=== PATIENT | female | born 1930 | race Caucasian/White ===

== ENCOUNTER → 2016-12-25 | Outpatient (CLI) | payer MEDICARE, OTHER | END | disposition home or self-care (01) | LOC: GMAB 16:40 | PROVIDERS: ATTEND Family Medicine | DX: E03.9 Hypothyroidism, unspecified (principal) ==

== ENCOUNTER → 2018-01-23 | Outpatient (CLI) | payer MEDICARE, OTHER ==
--- NOTE | 2018-01-23 20:51 | MRI ---
EXAM DESCRIPTION: Lumbar Spine w/o Contrast : Magnetic Resonance Imaging. CLINICAL HISTORY: LOW BACK PAIN COMPARISON: LUMBAR TECHNIQUE: Multiplanar, multiple standard sequences, non contrast MRI, lumbar spine. FINDINGS: L5-S1: Disc desiccation and minimal disc space loss. Bilateral Modic type II endplate reactive changes more to the left and right. Left side disc osteophyte complex encroaching on the foramen with marked stenosis and impingement of the exiting left L5 nerve minimal posterior disc bulge and mild canal narrowing. Moderate right foraminal narrowing. Posterior flavum ligament hypertrophy and facet arthrosis more left than right. L4-5: Disc desiccation and disc space preserved. Minimal anterior bulging. Tiny posterior broad-based bulge and trace anterolisthesis. Marked flavum ligament hypertrophy with facet arthrosis and AP canal diameter is 6 mm. Narrowing of the bilateral subarticular recesses. Between the right medial facet in the right posterior disc space is a 6 mm cystic mass. Minimal encroachment on the lateral thecal sac and the descending right L5 nerve. Bulging disc and facet spur on the right causing mild foraminal stenosis. Similar stenosis with disc facet mass effect on the left. L3-4: Disc desiccation and anterior bulging. Trace retrolisthesis. Posterior broad-based tiny bulge. Marked hypertrophy of the flavum ligaments and facet arthrosis encroaching on the thecal sac AP canal diameter 8 mm. Minimal narrowing of the superior subarticular recesses. Mild to moderate narrowing of the right foramen and moderate narrowing of the left foramen caused by bulging of the facets and discs bilaterally. L2-3: Disc desiccation minimal anterior posterior bulge with disc space preserved more on the left. Mild flavum ligament hypertrophy and facet arthrosis bilaterally with mild canal narrowing. Facet and bone causing left foraminal stenosis. Mild to moderate narrowing of the right foramen. L1-2: Disc desiccation minimal anterior bulging and narrowing. Minimal ligament and facet abnormality. Canal patent. Minimal right side Modic type II endplate reactive changes. Bilateral foramina are patent. Conus terminates at this level. T12-L1: Anterior disc space loss disc bulging and endplate ridging and Modic type II endplate reactive changes. Tiny posterior bulge posteriorly with facet arthrosis and minimal ligament hypertrophy. Canal and foramina are patent. L2-L4 levoscoliosis. Paravertebral soft tissues paraspinal muscle atrophy.. Normal marrow signal in the remaining vertebral bodies and the posterior elements. Vertebral bodies are not compressed at any level. IMPRESSION: 1. Bilateral moderate spondylosis. Left disc osteophyte complex encroaching on the foramen with moderate stenosis. Correlate for left L5 radiculopathy. 2. Multifactorial severe canal stenosis at L4-5 with narrowing of the bilateral subarticular recesses. 6 mm right facet synovial cyst may be impinging the descending right L5 nerve. Mild foraminal stenosis bilaterally, correlate for bilateral L4 radiculopathy. 3. Multifactorial mild to moderate canal stenosis at L3-4. Mild to moderate narrowing of the right foramen. Correlate for bilateral L4 nerve impingement in the canal. 4. Facet bone complex with left foraminal stenosis at L2-3. Correlate for left L2 radiculopathy. Electronically signed by: Nikhil Augustin MD 01/23/2018 8:50 PM CDT
== END ==
LOC: MRI 14:58
PROVIDERS: ATTEND Family Medicine
DX: M54.5 Low back pain (principal); M47.896 Other spondylosis, lumbar region; M48.061 Spinal stenosis, lumbar region without neurogenic claudication

== ENCOUNTER → 2018-02-24 | Outpatient (CLI) | payer MEDICARE, OTHER | LOC: GMAE 15:25 | PROVIDERS: ATTEND Family Medicine | DX: E03.9 Hypothyroidism, unspecified (principal) ==

== ENCOUNTER → 2018-03-24 | Outpatient (CLI) | payer MEDICARE, OTHER | LOC: GMAE 14:50 | PROVIDERS: ATTEND Family Medicine | DX: D64.9 Anemia, unspecified (principal) ==

== ENCOUNTER → 2018-05-28 | Outpatient (CLI) | payer MEDICARE, OTHER | LOC: GMAE 17:19 | PROVIDERS: ATTEND Family Medicine | DX: R06.02 Shortness of breath (principal); R07.2 Precordial pain ==

== ENCOUNTER 2018-07-09 21:44 | Emergency (ER) | payer MEDICARE, OTHER ==
--- NOTE | 2018-07-09 15:23 | MRI ---
EXAM DESCRIPTION: Brain w/wo Contrast: Magnetic Resonance Imaging. CLINICAL HISTORY: 87 years Female I66.01 COMPARISON: MRI scan of the brain without and with gadolinium IV contrast on 2015 and 08/22/2015. TECHNIQUE: Multiplanar, high-field MRI, multiple conventional sequences, without and with gadolinium IV contrast. No adverse reactions. Multiple axial diffusion sequences. FINDINGS: Bilateral confluent hyperintense signal in the periventricular white matter superior to the ventricles bilaterally with small foci of hyperintense FLAIR and T2 signal slightly more superior in the right frontal lobe. Also minimal confluence of hyperintense periventricular FLAIR signal abutting the occipital segments of the lateral ventricles. Another focal hyperintense FLAIR lesion is in the ascending white matter tracts anterior right frontal tanner radiata above the basal ganglia. These lesions are not associated with hemorrhage, abnormal contrast enhancement, or diffusion restriction.. Small focal hyperintense FLAIR signal in the anterior right basal ganglia. No hemorrhage, no cerebral edema, no mass-effect. No diffusion restriction. Normal contrast enhancement. Normal signal in the brainstem and cerebellar hemispheres. No hemorrhage, no cerebral edema, no mass-effect. Normal contrast enhancement. Concordance of the diffusion and non-diffusion sequences with no evidence of acute or subacute infarction. Cortical sulci, ventricles, and other CSF spaces, and the subdural spaces are normally configured for the patient's age. No effacement or displacement. No midline shift. No extra-axial hemorrhage. Normal contrast enhancement. Normal flow signal void in the major vessels of the [place], and the venous sinuses. IACs are symmetric bilaterally. Normal signal in the bilateral mastoid air cells. No mass effect in the bilateral Cerebellopontine angles. Normal contrast enhancement. Pituitary gland occupies most of the sella. Normal contrast enhancement. Base of the cerebellar tonsils is just above the foramen magnum. Minimal hyperintense T2 signal in the anterior paranasal sinuses. The bony calvarium is intact. IMPRESSION: 1. White matter signal changes in the periventricular regions as described without contrast enhancement hemorrhage, mass effect, or diffusion restriction. Relatively stable since the prior study in 2015. 2. No diffusion restriction elsewhere in the brain with no evidence of acute or subacute cerebral infarction. No intra-axial extra-axial hemorrhage or abnormal contrast enhancement. Electronically signed by: Nikhil Augustin MD 07/09/2018 3:22 PM [facility]
[2018-07-09] MEDS ORDERED: NITROGLYCERIN 0.4 MG 25 EA TAB SL ONE ×2 (21:52→21:56)
[2018-07-09] MEDS ORDERED: ASPIRIN TABLET 325 MG TAB ONE (21:53)
[2018-07-09] MEDS ORDERED: ASPIRIN TABLET 325 MG TAB PO ONE (21:56)
[2018-07-09] MEDS ORDERED: ONDANSETRON INJ 4 MG/2 ML VIAL ONE (22:10)
[2018-07-09] MEDS ORDERED: ONDANSETRON INJ 4 MG/2 ML VIAL IV ONE (22:10)
[2018-07-09] MEDS ORDERED: MORPHINE SULFATE INJ 10 MG/ML VIAL IV ONE (22:10)
[2018-07-09] MEDS ORDERED: ADENOSINE INJ 6 MG/2 ML SYG IV ONE (22:12)
--- NOTE | 2018-07-09 22:20 | RAD ---
EXAM DESCRIPTION: Chest,1 View CLINICAL HISTORY: chest pain COMPARISON: None. FINDINGS: Cardiac silhouette is within normal limits. There is consolidation at the right lung base and mild bilateral pulmonary edema. No consolidation in the left lung. IMPRESSION: Right lung base consolidation. Electronically signed by: Nikhil Rivers 07/09/2018 10:19 PM [facility]
--- NOTE | 2018-07-09 22:25 | ED.PDOC ---
History of Present Illness - General Chief Complaint: Chest Pain/[place] Stated Complaint: chest pain Time Seen by Provider: 07/09/18 22:05 Exam Limitations: no limitations - History of Present Illness Initial Comments: CHEST PAIN ONSET AT 1830 HRS. SHE VOICES THAT SHE HAS TWO STENTS FIVE YEARS AGO BY DR. ARIAS. SHE ALSO HAS A HX OF AF. FEELS PALPITATIONS/ PAIN IS PRESSURE ON THE SUBSTERNAL AREA ASSOCIATED WITH MILD SOB. Timing/Duration: 4-6 hours Location: substernal Activities at Onset: none Prior Chest Pain/Cardiac Workup: cardiac cath, other - HAS KNOWN CAD Improving Factors: nothing Worsening Factors: nothing Nitro Today/Relief: no nitro taken today Aspirin Treatment Today: no aspirin today Associated Symptoms: chest pain Allergies/Adverse Reactions: Allergies NO KNOWN ALLERGY Allergy (Verified 04/26/16 10:29) Home Medications: Ambulatory Orders Aspirin [Aspirin Adult Low Dose] 81 mg PO DAILY 04/26/16 Insulin Lispro [HumaLOG] 300 unit SUBCU PRN 04/26/16 Levothyroxine Sodium [Levo-T] 100 mcg PO AC 04/26/16 Acetaminophen [Tylenol 8 Hour] 650 mg PO PRN 07/09/18 Clopidogrel Bisulfate [Plavix] 75 mg PO QD 07/09/18 Docusate Sodium [Stool Softener] 100 mg PO AC 07/09/18 Homeopathic Products [Leg Cramp Relief] 1 tab PO PRN 07/09/18 Insulin Glargine [Toujeo Max Solostar] 42 unit SC AC 07/09/18 Metoprolol Succinate [Metoprolol Succinate ER] 25 mg PO BID 07/09/18 Multiple Vitamins W/ Minerals [Centrum Silver] 1 tab PO DAILY 07/09/18 Red Yeast Rice Extract [Red Yeast Rice] 600 mg PO BID 07/09/18 Review of Systems - Review of Systems Constitutional: States: malaise EENTM: States: no symptoms reported Respiratory: States: short of breath Cardiology: States: chest pain, palpitations Gastrointestinal/Abdominal: States: nausea Genitourinary: States: no symptoms reported Musculoskeletal: States: no symptoms reported Skin: States: no symptoms reported Neurological: States: no symptoms reported Endocrine: States: no symptoms reported Hematologic/Lymphatic: States: no symptoms reported Past Medical History (General) - Patient Medical History Hx Seizures: No Hx Stroke: No Hx Dementia: No Hx Asthma: No Hx of COPD: No Hx Cardiac Disorders: Yes Hx Congestive Heart Failure: No Hx Pacemaker: No Hx Hypertension: Yes Hx Thyroid Disease: Yes Hx Diabetes: Yes Hx Gastroesophageal Reflux: No Hx Renal Disease: No Hx Cancer: No Hx of HIV: No Hx Hepatitis C: No Hx MRSA: No Surgical History: cholecystectomy Family Medical History - Family History Mother Family History: Unknown Physical Exam - Physical Exam General Appearance: Obvious distress Eyes, Ears, Nose, Throat Exam: PERRL/EOMI Neck: non-tender Respiratory: chest non-tender Cardiovascular/Chest: normal peripheral pulses, no edema, no gallop, tachycardia Peripheral Pulses: radial,right: 2+, radial,left: 2+ Gastrointestinal/Abdominal: normal bowel sounds, non tender, soft, no organomegaly, no pulsatile mass Rectal Exam: deferred Extremity: normal range of motion Neurologic: no motor/sensory deficits, normal mood/affect, oriented x 3 Skin Exam: normal color Lymphatic: no adenopathy Progress - Progress Progress: 07/09/18 22:28 HR AT 74 AFTER 20 MG OF CARDIZEM. PAIN IS BETTER. 07/09/18 22:53 Vital Signs (72 hours) 07/09/18 21:45 Temperature 96.7 F L Pulse Rate [ 130 H monitor] Respiratory 16 Rate Blood Pressure 176/112 [Left Arm] O2 Sat by Pulse 92 L Oximetry 07/09/18 23:30 EKG: HR OF 131, QRS OF 96, QTC PF 416, AXES OF 69, IMPRESSION, SVT OR AF WITH RVR, MARKED ST SEGMENT DEPRESSION ON THE INFERIOR AND LATERAL PRECORDIAL LEADS SUGGESTIVE OF SUBENDIOCARDIAL LESION. THERE ARE PREVIOUS TRACINGS TO COMPARE WITH. EKG NO2.: HR OF 72, NC INTERVAL OF 228, QRS OF 94, QTC OF 480, AXES OF 59. IMPRESSION: SINUS RHYTHM, FIRST DEGREE AV BLOCK. MARKED ST SEGMENT DEPRESSION ON THE INFERO-LATERAL LEADS. COMPARISON: A TRACING DONE TODAY AT 2143: THE RHYTHM HAS NOW SLOWED DOWN. I HAVE DECIDED TO TRANSFER THE PATIENT TO [place] WHERE DR. ARIAS IS-HER ADMINISTRATIVE ASSISTANT RECEPTIONIST. 07/09/18 23:43 I HAVE SPOKEN WITH DR. CARR (TAKING CALL FOR DR. ARIAS) AND HE HAS ACCEPTED THE PATIENT TO BE TRANSFERRED TO [facility]. - Results/Orders Results/Orders: 07/09/18 21:56 IV Care:Saline Lock per Protoc QSHIFT Telemetry .ONCE EKG Stat Pulse Ox Stat 07/09/18 22:08 B-TYPE NATRIURETIC PEPTIDE/BNP Stat CARDIAC PANEL,ER Stat HEPATIC FUNCTION PANEL Stat 07/09/18 22:32 EKG Assessment ONCE 07/09/18 22:45 EKG STAT Laboratory Results WBC 7.7 K/mm3 (4.8-10.8) 07/09/18 22:08 RBC 4.10 M/mm3 (4.20-5.40) L 07/09/18 22:08 Hgb 11.6 gm/dL (12.0-16.0) L 07/09/18 22:08 Hct 36.0 % (36.0-47.0) 07/09/18 22:08 MCV 87.8 fl (81.0-99.0) 07/09/18 22:08 MCH 28.2 pg (27.0-31.0) 07/09/18 22:08 MCHC 32.3 g/dL (33.0-37.0) L 07/09/18 22:08 RDW 13.8 % (11.5-14.5) 07/09/18 22:08 Plt Count 229 K/mm3 (130-400) 07/09/18 22:08 MPV 9.1 fl (7.40-10.4) 07/09/18 22:08 Absolute Neuts (auto) 5.70 K/uL (1.8-6.8) 07/09/18 22:08 Absolute Lymphs (auto) 1.10 K/uL (1.0-3.4) 07/09/18 22:08 Absolute Monos (auto) 0.70 K/uL (0.2-0.8) 07/09/18 22:08 Absolute Eos (auto) 0.10 K/uL (0.0-0.4) 07/09/18 22:08 Absolute Basos (auto) 0.10 K/uL (0.0-0.1) 07/09/18 22:08 Neutrophils % 73.9 % (42.0-78.0) 07/09/18 22:08 Lymphocytes % 14.8 % (20.0-50.0) L 07/09/18 22:08 Monocytes % 9.2 % (2.0-9.0) H 07/09/18 22:08 Eosinophils % 1.2 % (1.0-5.0) 07/09/18 22:08 Basophils % 0.9 % (0.0-2.0) 07/09/18 22:08 PT 10.7 SECONDS (9.0-10.9) 07/09/18 22:08 INR 1.07 (0.9-1.15) 07/09/18 22:08 PTT (SP) 45.0 SECONDS (21.8-31.6) H 07/09/18 22:08 D-Dimer, Quantitative 0.67 mg/L FEU (0-0.49) H* 07/09/18 22:08 Sodium 132 mmol/L (135-145) L 07/09/18 22:08 Potassium 4.9 mmol/L (3.6-5.0) 07/09/18 22:08 Chloride 98 mmol/L (101-111) L 07/09/18 22:08 Carbon Dioxide 26 mmol/L (21-31) 07/09/18 22:08 Anion Gap 12.9 (12-18) 07/09/18 22:08 BUN 40 mg/dL (7-18) H 07/09/18 22:08 Creatinine 1.74 mg/dL (0.6-1.3) H 07/09/18 22:08 BUN/Creatinine Ratio 23.0 (10-20) H 07/09/18 22:08 Random Glucose 199 mg/dL (70-105) H 07/09/18 22:08 Serum Osmolality 279.9 mOsm/L (275-295) 07/09/18 22:08 Calcium 9.4 mg/dL (8.4-10.2) 07/09/18 22:08 Magnesium 2.0 mg/dL (1.8-2.5) 07/09/18 22:08 Total Bilirubin 0.5 mg/dL (0.2-1.0) 07/09/18 22:08 Direct Bilirubin 0.1 mg/dL (0-0.2) 07/09/18 22:08 Indirect Bilirubin 0.4 mg/dL (0.2-0.8) 07/09/18 22:08 AST 25 IU/L (10-42) 07/09/18 22:08 ALT 18 IU/L (10-60) 07/09/18 22:08 Alkaline Phosphatase 60 IU/L (42-121) 07/09/18 22:08 Creatine Kinase 142 IU/L (26-140) H 07/09/18 22:08 CK-MB (CK-2) 4.6 ng/mL (0.0-4.4) H* 07/09/18 22:08 CK-MB (CK-2) % 3.24 % (0.0-4.3) 07/09/18 22:08 Troponin I 0.35 ng/mL (0.01-0.05) H* 07/09/18 22:08 Serum Total Protein 7.0 gm/dL (6.4-8.2) 07/09/18 22:08 Albumin 4.0 g/dl (3.2-5.5) 07/09/18 22:08 Departure - Departure Clinical Impression: NSTEMI (non-ST elevated myocardial infarction) Pneumonia Qualifiers: Pneumonia type: due to unspecified organism Laterality: right Lung location: lower lobe of lung Qualified Code(s): J18.1 - Lobar pneumonia, unspecified organism CAD (coronary artery disease) Qualifiers: Coronary Disease-Associated Artery/Lesion type: [place] artery [place] vs. transplanted heart: [place] heart Associated angina: with unstable angina Qualified Code(s): I25.110 - Atherosclerotic heart disease of [place] coronary artery with unstable angina pectoris Diabetes Qualifiers: Diabetes mellitus type: type 2 Diabetes mellitus college intern insulin use: with [place] [facility] use Diabetes mellitus complication status: without complication Tulio lified Code(s): E11.9 - Type 2 diabetes mellitus without complications Time of Disposition: 23:28 Disposition: Discharge to Home or Self Care Departure Forms: ED Discharge - Pt. Copy, Patient Portal Self Enrollment Instructions: DI for Chest Pain Referrals: Brent Jimenez MD [Primary Care Provider] - 1-2 Weeks Home Medications: Ambulatory Orders Aspirin [Aspirin Adult Low Dose] 81 mg PO DAILY 04/26/16 Insulin Lispro [HumaLOG] 300 unit SUBCU PRN 04/26/16 Levothyroxine Sodium [Levo-T] 100 mcg PO AC 04/26/16 Acetaminophen [Tylenol 8 Hour] 650 mg PO PRN 07/09/18 Clopidogrel Bisulfate [Plavix] 75 mg PO QD 07/09/18 Docusate Sodium [Stool Softener] 100 mg PO AC 07/09/18 Homeopathic Products [Leg Cramp Relief] 1 tab PO PRN 07/09/18 Insulin Glargine [Toujeo Max Solostar] 42 unit SC AC 07/09/18 Metoprolol Succinate [Metoprolol Succinate ER] 25 mg PO BID 07/09/18 Multiple Vitamins W/ Minerals [Centrum Silver] 1 tab PO DAILY 07/09/18 Red Yeast Rice Extract [Red Yeast Rice] 600 mg PO BID 07/09/18 Critical Care Note - Critical Care Note Comments: CRITICAL CARE: CRITICAL EVENT: CHEST PAIN CRITICAL FINDINGS: ELEVATED TROPONIN I, NSTEMI, PNEUMONIA, CRITICAL ACTIONS, TRANSFER TO HIGHER LEVEL OF CARE, IV NITRATES, IV HEPARIN, IV CARDIZEM . SYSTEMS AT RISK: CARDIOVASCULAR SYSTEM. Decision To Admit - Decistion To Admit Decision to Admit Date: 07/09/18 Decision to Admit Time: 23:25 Transfer to Outside Facility - Transfer Information Accepting Provider:: DR. TRUE CARR Accepting Facility: [facility] Reason for Transfer: required specialist not available - NEEDS ADMINISTRATIVE ASSISTANT RECEPTIONIST
[2018-07-09] MEDS ORDERED: HEPARIN PREMIX 25,000 UNITS in PREMIX BAG 1 BAG IVS SCH (23:00)
[2018-07-09] MEDS ORDERED: SODIUM CHLORIDE 0.9% 1000ML 1,000 ML ONE (23:00)
[2018-07-09] MEDS ORDERED: NITROGLYCERIN/D5W IV 50,000 MCG in PREMIX BOTTLE 1 BOTTLE IVS SCH (23:00)
[2018-07-09] MEDS ORDERED: AZITHROMYCIN IV 500 MG in SODIUM CHLORIDE 0.9% 250ML 250 ML IVPB ONE (23:04)
[2018-07-09] MEDS ORDERED: cefTRIAXone SODIUM 1 GM in SODIUM CHL 0.9% 50ML MIN-BAG+ 50 ML IVPB ONE (23:04)
[2018-07-09] MEDS ORDERED: SODIUM CHL 0.9% 50ML MIN-BAG+ 50 ML IVPB ONE (23:15)
[2018-07-09] MEDS ORDERED: HEPARIN PREMIX 500 ML ONE (23:15)
[2018-07-09] MEDS ORDERED: cefTRIAXone SODIUM 1 GM VIAL ONE (23:15)
[2018-07-09] MEDS ORDERED: FUROSEMIDE INJ 40 MG/4 ML VIAL IV ONE (23:23)
[2018-07-09] MEDS ORDERED: NITROGLYCERIN/D5W IV 250 ML IVS ONE (23:31)
[2018-07-10] MEDS ORDERED: MORPHINE SULFATE INJ 10 MG/ML VIAL IV ONE (00:05)
[2018-07-10 00:31] VITALS: O2SAT 99
[2018-07-10 00:48] VITALS: BP 153/94; TEMP 97.2
== END 2018-07-10 01:00 | disposition home or self-care (01) ==
LOC: ER 21:44
DX: I21.4 Non-ST elevation (NSTEMI) myocardial infarction (principal); J18.9 Pneumonia, unspecified organism; I25.110 Atherosclerotic heart disease of native coronary artery with unstable angina pectoris; E11.9 Type 2 diabetes mellitus without complications; I44.0 Atrioventricular block, first degree; I10 Essential (primary) hypertension; E07.9 Disorder of thyroid, unspecified; Z79.4 Long term (current) use of insulin; Z79.82 Long term (current) use of aspirin; Z79.899 Other long term (current) drug therapy
CPT/HCPCS: 36415; 70553; 71045; 80048; 80076; 82550; 82553; 82565; 83880; 84484; 84520; 85025; 85379; 85610; 85730; 87040; 93005; J0696; J1644; J1940; J2270; J2405; J7030; J7050

== ENCOUNTER → 2018-09-24 | Outpatient (CLI) | payer MEDICARE, OTHER | LOC: LAB.O 17:04 | PROVIDERS: ATTEND Family Medicine | DX: D64.9 Anemia, unspecified (principal) ==

== ENCOUNTER → 2019-03-10 | Outpatient (CLI) | payer MEDICARE, OTHER | LOC: GMAE 11:12 | PROVIDERS: ATTEND Family Medicine | DX: E03.9 Hypothyroidism, unspecified (principal); I10 Essential (primary) hypertension; E11.22 Type 2 diabetes mellitus with diabetic chronic kidney disease; Z79.4 Long term (current) use of insulin ==

== ENCOUNTER → 2019-08-21 | Outpatient (CLI) | payer MEDICARE, OTHER ==
--- NOTE | 2019-08-21 19:16 | MRI ---
EXAM DESCRIPTION: Brain w/o Contrast: MRI. CLINICAL HISTORY: TIA COMPARISON: MRI scan of the brain without and with gadolinium IV contrast June 2018. TECHNIQUE: Multiplanar, high-field MRI unit, multiple diffusion sequences, multiple conventional sequences without contrast. FINDINGS: Bilateral foci of hyperintense FLAIR and T2-weighted signal in the in the periventricular white matter superior to the basal ganglia in the frontal and parietal lobes. Confluent periventricular hyperintense T2 and FLAIR signal abutting the right occipital lobe.. Few lesions in the right centrum semiovale. No hemorrhage, no cerebral edema, no mass-effect. Focal hyperintense T2 and FLAIR signal in the anterior superior right basal ganglia. No hemorrhage or mass effect. Normal signal in the left basal ganglia. Normal signal in the brainstem and cerebellar hemispheres. No hemorrhage, no parenchymal edema, no mass-effect. Bilateral symmetric prominence of the cerebellar folia. Concordance of the diffusion and non-diffusion sequences with no diffusion restriction. Cortical sulci, ventricles, and other CSF spaces, and the subdural spaces are age appropriate, with minimal central and cortical atrophy that is symmetric. No effacement or displacement. No midline shift. No extra-axial hemorrhage. Normal flow signal void in the major vessels of the [place], and the venous sinuses. IACs are symmetric bilaterally. Normal signal in the bilateral mastoid air cells. No mass effect in the bilateral cerebellopontine angles. Pituitary gland occupies most of the sella. Base of the cerebellar tonsils is slightly above the foramen magnum. Minimal mucoperiosteal thickening in the paranasal sinuses.. The bony calvarium is intact. IMPRESSION: 1. White matter lesions in the cerebral hemispheres including periventricular tanner radiata, centrum semiovale on the right, and right basal ganglia, consistent with chronic cerebral microvascular disease and age-related changes. This is stable since June 2018. No mass effect or hemorrhage. Normal noncontrast MRI diffusion study with no evidence of significant ischemia or infarction that is acute or subacute. 2. Central and cortical atrophy of the cerebral hemispheres and atrophy of the cerebral hemispheres is most likely age-related and unchanged since the prior study. 3. Paranasal chronic sinusitis has progressed mildly since the prior study. Electronically signed by: Nikhil Augustin MD 08/21/2019 7:14 PM [facility]
== END ==
LOC: MRI 09:00
PROVIDERS: ATTEND Psychiatry & Neurology Neurology
DX: G45.9 Transient cerebral ischemic attack, unspecified (principal); R90.82 White matter disease, unspecified; G31.9 Degenerative disease of nervous system, unspecified; J32.9 Chronic sinusitis, unspecified

== ENCOUNTER → 2019-09-15 | Outpatient (CLI) | payer MEDICARE, OTHER | LOC: GMAE 14:16 | PROVIDERS: ATTEND Family Medicine | DX: E03.9 Hypothyroidism, unspecified (principal); E11.22 Type 2 diabetes mellitus with diabetic chronic kidney disease; E78.2 Mixed hyperlipidemia ==

== ENCOUNTER → 2019-11-16 | Outpatient (CLI) | payer MEDICARE, OTHER ==
--- NOTE | 2019-11-16 10:34 | RAD ---
EXAM DESCRIPTION: Shoulder,Left 2 or More Views CLINICAL HISTORY: 89 years Female, SHOULDER PAIN LEFT COMPARISON: October 22, 2019 FINDINGS: 2 views of the left shoulder again show a slightly comminuted left humeral head neck fracture moderate displacement and impaction humeral neck fracture site. Displacement and impaction is new or significantly worse from October 22, 2019. The glenohumeral joint appears grossly aligned. No new fracture. Degenerative changes in the left AC joint. IMPRESSION: Comminuted left humeral head and neck fracture with new or significantly worse displacement and impaction of the humeral neck fracture site. Electronically signed by: Unruly Baumann MD 11/16/2019 10:33 AM CDT
--- NOTE | 2019-11-16 12:59 | CT ---
EXAM DESCRIPTION: Upper Extremity CLINICAL HISTORY: LEFT HUMERUS FX COMPARISON: Shoulder radiograph dated same day.. TECHNIQUE: Extremity CT of the left shoulder is performed with thin-section axial imaging. MPRs are created and reviewed as well. 3-dimensional reconstructions created on a dedicated workstation were created and are also maintained in the patient's medical record. FINDINGS: BONE AND JOINTS: Redemonstration of acute/subacute left surgical neck humerus comminuted fracture with anterior displacement of the distal fracture fragment by approximately 9 mm and fragmentation of the lesser tuberosity (bony fragment measures 1.9 cm in AP dimension) with fracture lucency involving bicipital groove and inferior aspect of the greater tuberosity. Mild anterior apex angulation at the surgical neck. No displacement of the greater tuberosity. There is no intra-articular extension into the left glenohumeral joint. No shoulder joint dislocation. Early surrounding periosteal new bone formation. Moderate acromioclavicular joint osteoarthrosis with small inferiorly directed osteophyte.. SOFT TISSUES: No organized hematoma. Small left lung apex calcified granuloma. IMPRESSION: 1. Left comminuted humerus neck and head fracture with fragmentation of the lesser tuberosity and mild anterior displacement as above. This exam was performed according to our departmental dose-optimization program, which includes automated exposure control, adjustment of the mA and/or kV according to patient size and/or use of iterative reconstruction technique. Electronically signed by: Gordon Wilcox DO 11/16/2019 12:57 PM CDT
== END ==
LOC: RAD 11:01
PROVIDERS: ATTEND Orthopaedic Surgery
DX: S42.212D Unspecified displaced fracture of surgical neck of left humerus, subsequent encounter for fracture with routine healing (principal)

== ENCOUNTER → 2019-11-20 | Outpatient (CLI) | payer MEDICARE, OTHER | LOC: GMAE 13:29 | PROVIDERS: ATTEND Family Medicine | DX: N39.0 Urinary tract infection, site not specified (principal) ==

== ENCOUNTER 2019-11-26 09:55 | Observation (INO) | payer MEDICARE, OTHER ==
--- NOTE | 2019-11-26 10:21 | ED.PDOC ---
History of Present Illness - General Chief Complaint: Neuro Symptoms/Deficits Stated Complaint: confusion Time Seen by Provider: 11/26/19 09:58 Source: patient, RN notes reviewed, Vital Signs reviewed, family Exam Limitations: no limitations Additional Information: 89yo F h/o CHF, CAD, and fall s/p left hip arthroplasty and communited humerus fx with conservative treatment presents on referral from PCP (Dr. Patiño) for confusion. Family reports patient has been confused, saying inappropriate things, since she was in hospital last. They reports this confusion persisted during hospital stay, acute care rehab, and now at home, seeming to worse over the past couple days. They reported history of UTI/sepsis, treated while at rehab. Also reported patient got out of bed and sat on floor today. Stopped taking pain medications last night because family thought that may be the cause of confusion. Patient denies any pain or other symptoms at this time. - History of Present Illness Timing/Duration: constant Improving Factors: nothing Worsening Factors: nothing Associated Symptoms: confusion Allergies/Adverse Reactions: Allergies Codeine Adverse Reaction (Severe, Verified 11/26/19 10:27) hallucinations Home Medications: Ambulatory Orders Insulin Lispro [Humalog] 300 unit SUBCU BEDTIME 04/26/16 Levothyroxine Sodium [Levo-T] 100 mcg PO 0600 04/26/16 Insulin Glargine [Toujeo Max Solostar] 10 unit SC ACBK 07/09/18 Multiple Vitamins W/ Minerals [Centrum Silver] 1 tab PO DAILY 07/09/18 Amlodipine Besylate [Norvasc] 5 mg PO BID 10/22/19 Apixaban [Eliquis] 2.5 mg PO BID 10/22/19 Aspirin [Aspirin Adult Low Dose] 81 mg PO DAILY 10/22/19 Atorvastatin Calcium [Lipitor] 10 mg PO MOWEFR 10/22/19 Furosemide [Lasix] 20 mg PO DAILY 10/22/19 Hydroxyzine HCl 25 mg PO BID 10/22/19 Losartan Potassium [Cozaar] 25 mg PO BEDTIME 10/22/19 Metoprolol Tartrate [Lopressor] 100 mg PO BID #60 tab 10/28/19 Phenytoin Sodium Cap Extended [Dilantin Cap] 300 mg PO BID #60 cap 10/28/19 Sulfa/Trimeth 800/160 (Ds) Tab [Bactrim DS] 1 ea PO Q12HR tab 10/28/19 Review of Systems - Review of Systems Constitutional: States: no symptoms reported EENTM: States: no symptoms reported Respiratory: States: no symptoms reported Cardiology: States: no symptoms reported Gastrointestinal/Abdominal: States: no symptoms reported Genitourinary: States: no symptoms reported Musculoskeletal: States: no symptoms reported - left shoulder and hip, chronic after surgery/fx, joint pain Skin: States: lesions - decubitus ulcer Neurological: States: other - confusion Past Medical History (General) - Patient Medical History Hx Seizures: No Hx Stroke: No Hx Dementia: No Hx Asthma: No Hx of COPD: No Hx Cardiac Disorders: Yes Hx Congestive Heart Failure: No Hx Pacemaker: No Hx Hypertension: Yes Hx Thyroid Disease: Yes Hx Diabetes: Yes - 245 IN PACU Hx Gastroesophageal Reflux: No Hx Renal Disease: No Hx Cancer: No Hx of HIV: No Hx Hepatitis C: No Hx MRSA: No - Vaccination History Hx Influenza Vaccination: Yes - Social History Hx Alcohol Use: No Hx Substance Use: No Hx Physical Abuse: No Hx Emotional Abuse: No Family Medical History - Family History Mother Family History: Unknown Age (years): 101 Living Status: Cause of : "old age" Hx Family Stroke: - mini strokes Physical Exam - Physical Exam General Appearance: Alert, No apparent distress, Well Groomed ENT Exam: pharynx normal, other - hard of hearing Neck: non-tender, full range of motion, supple, trachea midline Respiratory: chest non-tender, lungs clear, normal breath sounds, no respiratory distress Cardiovascular/Chest: normal peripheral pulses, regular rate, rhythm, no edema, no murmur Peripheral Pulses: radial,right: 2+, radial,left: 2+, dorsalis pedis,right: 2+, dorsalis pedis,left: 2+ Gastrointestinal/Abdominal: normal bowel sounds, non tender, soft Back Exam: no CVA tenderness, no vertebral tenderness Extremities Exam: non-tender, no evidence of injury - except LUE and LLE, limited in flexion of shoulder and hip Mental Status: alert, oriented x 3 - oriented x 3, initially required redirection from 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 She denies any CP or SOB and no other anginal equivalency noted. Awake, alert and oriented. Low suspicion for ACS, aortic pathology or acute blood loss anemia. On initial exam, she did have occasional perseverating phrases on going home, and the rare inappropriate answer for the question being asked. However, she was easily redirected and r eturned to appropriate speech with no dysarthria noted. Unclear etiology of reported encephalopathy. Plan for labs, pain control PRN, imaging, and reassess. 11/26/19 13:26 Update patient and family on results. Answered questions. Have attempted to call Dr. Patiño's office several times. Will continue to attempt for admit. Patient with no fever, hypoxia, increased work of breathing, cough, or other symptoms to indicate COVID at this time. Reviewed CXR and findings with family, and agree does not clinically appear consistent with pneumonia at this time. More likely multifactorial with contributory factros of meds, volume depletion, and dilantin level. Discussed CT scan not being available as it is not operational, and family agreed CT scan would likely not aide with patient with no focal/lateralizing deficits or complaints of pain. Spoke with LIANA Rivera who agrees with hospital placement. 11/26/19 13:41 11/26/19 13:43 Chai Jorge MD #[id number] - EKG/XRAY/CT EKG: Sinus - 1036 NSR rate of 73, normal axis, 1st degree AV block otherwise normal intervals, no STEMI, non-specific twave changes Departure - Departure Clinical Impression: Acute encephalopathy Disposition: Admit Patient Condition: Fair Referrals: DIANE PATIÑO MD [Primary Care Provider] - 1-2 Weeks Home Medications: Ambulatory Orders Insulin Lispro [Humalog] 300 unit SUBCU BEDTIME 04/26/16 Levothyroxine Sodium [Levo-T] 100 mcg PO 0600 04/26/16 Insulin Glargine [Toujeo Max Solostar] 10 unit SC ACBK 07/09/18 Multiple Vitamins W/ Minerals [Centrum Silver] 1 tab PO DAILY 07/09/18 Amlodipine Besylate [Norvasc] 5 mg PO BID 10/22/19 Apixaban [Eliquis] 2.5 mg PO BID 10/22/19 Aspirin [Aspirin Adult Low Dose] 81 mg PO DAILY 10/22/19 Atorvastatin Calcium [Lipitor] 10 mg PO MOWEFR 10/22/19 Furosemide [Lasix] 20 mg PO DAILY 10/22/19 Hydroxyzine HCl 25 mg PO BID 10/22/19 Losartan Potassium [Cozaar] 25 mg PO BEDTIME 10/22/19 Metoprolol Tartrate [Lopressor] 100 mg PO BID #60 tab 10/28/19 Phenytoin Sodium Cap Extended [Dilantin Cap] 300 mg PO BID #60 cap 10/28/19 Sulfa/Trimeth 800/160 (Ds) Tab [Bactrim DS] 1 ea PO Q12HR tab 10/28/19 Decision To Admit - Decistion To Admit Decision to Admit Reason: Admit from ER Decision to Admit Date: 11/26/19 Decision to Admit Time: 13:40
--- NOTE | 2019-11-26 10:57 | RAD ---
EXAM DESCRIPTION: Pelvis CLINICAL HISTORY: pain sp fall COMPARISON: October 26, 2019 IMPRESSION: Single AP supine view of the pelvis shows left total hip arthroplasty with cement fixation of the femoral component. No fracture or dislocation. No evidence of hardware loosening. Osseous structures are diffusely osteopenic. Mild osteoarthritic changes of the right hip are seen. Electronically signed by: Rodrigo Mcpherson MD 11/26/2019 10:56 AM CDT
--- NOTE | 2019-11-26 10:57 | RAD ---
Study: Single Frontal Radiograph of the Chest. Indication:AMS Comparison: October 22, 2019 Impression: Cardiomegaly. Subtle progressed bibasilar atelectasis versus consolidation. Follow-up to resolution recommended. No pleural effusion or pneumothorax. Degenerative changes of the shoulders noted with a subacute appearing healing fracture of the surgical neck of the left humerus. Electronically signed by: Sameer Bullcok MD 11/26/2019 10:55 AM CDT
[2019-11-26] MEDS ORDERED: SODIUM CHLORIDE 0.9% 500ML 500 ML IVS ONE (11:53)
[2019-11-26] MEDS ORDERED: SODIUM CHLORIDE 0.9% (FLUSH) 10 ML SYG IV PRN ×2 (13:35→14:41)
[2019-11-26] MEDS ORDERED: IV SET AND CAP CHANGE INJ INJ SCH ×2 (14:00→15:00)
[2019-11-26] MEDS ORDERED: ONDANSETRON INJ 4 MG/2 ML VIAL IV PRN (14:41)
[2019-11-26] MEDS ORDERED: DOCUSATE SODIUM 100 MG CAP PO PRN (15:00)
[2019-11-26] MEDS ORDERED: cloNIDine HCL 0.1 MG TAB PO PRN (15:00)
[2019-11-26] MEDS ORDERED: HALOPERIDOL LACTATE INJ 5 MG/ML VIAL IM PRN (16:49)
[2019-11-26] MEDS ORDERED: LOSARTAN POTASSIUM 100 MG TAB ONE (18:54)
[2019-11-26] MEDS ORDERED: POTASSIUM CHLORIDE 10 MEQ TAB PO ONE (18:55)
[2019-11-26] MEDS ORDERED: hydrOXYzine HCl 25 MG TAB ONE (18:55)
[2019-11-26] MEDS ORDERED: APIXABAN 5 MG TAB PO ONE (18:55)
[2019-11-26] MEDS ORDERED: METOPROLOL TARTRATE 50 MG TAB ONE (18:56)
[2019-11-26] MEDS ORDERED: LOSARTAN POTASSIUM 25 MG TAB PO SCH (21:00)
[2019-11-26] MEDS: hydrOXYzine HCl 25 MG TAB PO SCH (21:27)
[2019-11-26] MEDS: APIXABAN 5 MG TAB PO SCH (21:30)
[2019-11-26] MEDS: POTASSIUM CHLORIDE 10 MEQ TAB PO SCH (21:30)
[2019-11-26] MEDS: METOPROLOL TARTRATE 50 MG TAB PO SCH (21:30)
[2019-11-26] MEDS: SODIUM CHLORIDE 0.9% (FLUSH) 10 ML SYG IV SCH (21:31)
[2019-11-27] MEDS ORDERED: LEVOTHYROXINE SODIUM 0.112 MG TAB PO SCH (07:00)
--- NOTE | 2019-11-27 07:57 | MRI ---
Study: MRI of the brain. Indication: AMS Technique: Multiplanar, multi sequence MRI of the brain obtained without intravenous contrast. Comparison: CT head October 23, 2019. MRI brain August 21, 2019 Findings: No MRI evidence of acute ischemia, acute hemorrhage, mass, mass effect, midline shift, or extra-axial fluid collection. Ventricles are normal in configuration without hydrocephalus. Patchy elevated T2/FLAIR signal abnormality is seen within the periventricular and subcortical white matter. Although nonspecific, this finding is most consistent with chronic microvascular ischemic change. Global parenchymal volume loss noted as well. Midline structures are intact. Paranasal sinuses are adequately aerated. Mastoid air cells are adequately aerated. Osseous structures and soft tissues demonstrate normal signal characteristics. Impression: No MRI evidence of acute intracranial abnormality. Senescent changes. Electronically signed by: Sameer Bullock MD 11/27/2019 7:56 AM CDT
[2019-11-27] MEDS: APIXABAN 5 MG TAB PO SCH (08:40)
[2019-11-27] MEDS: SODIUM CHLORIDE 0.9% (FLUSH) 10 ML SYG IV SCH (08:40)
[2019-11-27] MEDS: POTASSIUM CHLORIDE 10 MEQ TAB PO SCH (08:40)
[2019-11-27] MEDS: METOPROLOL TARTRATE 50 MG TAB PO SCH (08:40)
[2019-11-27] MEDS: hydrOXYzine HCl 25 MG TAB PO SCH (08:40)
[2019-11-27] MEDS ORDERED: ASPIRIN (ENTERIC COATED) 81 MG TAB PO SCH (09:00)
[2019-11-27] MEDS ORDERED: FUROSEMIDE 40 MG TAB PO SCH (09:00)
[2019-11-27] MEDS ORDERED: NON-FORMULARY MEDICATION 1 EA MIS (Insulin Glargine [Toujeo Solostar] 30 UNIT) SC SCH (09:00)
--- NOTE | 2019-11-27 11:34 | US ---
EXAM DESCRIPTION: Carotid Duplex CLINICAL HISTORY: 89 years Female, AMS COMPARISON: 06/17/2016 TECHNIQUE: Spectral analysis and Doppler waveforms as well as direct sonographic visualization utilized to evaluate the cervical carotid and vertebral arteries. The Society for Radiologists in Ultrasound carotid ultrasound consensus criteria is utilized in the interpretation of this exam. FINDINGS: Right carotid: Mild intimal thickening and atherosclerotic plaque throughout the common carotid and internal carotid arteries. Peak systolic velocity for the right internal carotid artery is 80 cm/sec. Peak systolic velocity for the right distal common carotid artery is 56 cm/sec. ICA/CCA ratio is 1.4. Normal Doppler waveforms. Findings compatible with less than 50 % stenosis of the right ICA. Left carotid: Moderate atherosclerotic plaque within the distal left common carotid artery and carotid bulb. Mild intimal thickening within the left carotid system. Peak systolic velocity for the left internal carotid artery is 53 cm/sec. Peak systolic velocity for the left distal common carotid artery is 51 cm/sec. ICA/CCA ratio is 1.0. Normal Doppler waveforms. Findings compatible with less than 50 % stenosis of the left ICA. Vertebral arteries: Normal antegrade flow of the vertebral arteries. IMPRESSION: 1. No hemodynamically significant stenosis of the bilateral carotid artery systems. Table 1. Society of Radiologists in Ultrasound Consensus Criteria for Carotid Stenosis Primary parameters Secondary parameters Degree of stenosis, % ICA PSV, cm/s Plaque estimate, % ICA/CCA PSV ratio ICA EDV, cm/s Normal <125 None <2.0 <40 <50 <125 <50 <2.0 <40 50-69 125-230 50 2.0-4.0 40-100 70 but not near occlusion >230 50 >4.0 >100 Near occlusion High, low, or undetectable Visible Variable Variable Total occlusion Undetectable Visible, no detectable lumen Not applicable Not applicable Electronically signed by: Best De MD 11/27/2019 11:33 AM CDT
[2019-11-27 16:34] VITALS: O2SAT 96
[2019-11-27 19:38] VITALS: BP 144/76; TEMP 97.7
--- NOTE | 2019-12-02 18:15 | SSS ---
SUPERVISING PHYSICIAN: Bennie Virk MD DATE OF ADMISSION: 11/26/19 DATE OF ADMISSION: 11/27/19 DISCHARGE DIAGNOSIS: 1. Confusion with neurologic deficits. 2. Recent traumatic injuries including a left humerus fracture and left hip fracture status post left hemiarthroplasty on 10/27/19. 3. Chronic renal insufficiency. 4. Diabetes mellitus, type 2. 5. Coronary artery disease. 6. Atrial fibrillation on Eliquis. 7. Hypertension. 8. Seizure disorder on Dilantin. 9. Hyperlipidemia. 10. Carotid artery stenosis. 11. Obstructive sleep apnea, not currently using BiPAP or CPAP. HISTORY OF PRESENT ILLNESS: This is an 89-year-old female patient who presented to the Emergency Room from her daughter's home due to increased confusion as well as neurologic changes. Approximately one month ago, she had a same level fall climbing over a fence and broke her left humerus as well as her left hip. She was brought into the hospital at that time and had a left hip arthroplasty per Dr. Nikunj Alvarado. Postoperatively after stabilization, she was sent to [facility] in [place]. She was then sent home. She had some confusion at the time of her surgery that was attributed to her anesthesia as well as pain medications. She has been confused off and on since that hospitalization, but her confusion and neurologic changes worsened to the point that her family brought her in. She also has a significant history of seizure disorder and her Dilantin had been adjusted at her last hospitalization. In the Emergency Room, her vital signs showed temperature 97.8, heart rate 82, blood pressure 123/63, respiratory rate 18, O2 saturation 92% on room air. Her lab showed CBC that was unremarkable. Sodium 134, potassium 5, chloride 99. BUN 166, creatinine 1.66. Her baseline creatinine is about 1.3. Her urinalysis is unremarkable. Her Dilantin level was 31.1. CT was down and they were unable to do a CT of the head and her family did not want her to go to another facility. Her x-rays were negative for acute fracture. The patient was placed in observation overnight. HOSPITAL COURSE: The patient was placed in observation. Her Dilantin was held and then later adjusted. Her neurologic status continued to show some confusion, but it was somewhat more at baseline although she is still quite confused and combative at times. The daughter did admit that she was confused most of the time and it had worsened since her traumatic fall. A brain MRI as well as carotid ultrasound were performed. There were no acute issues noted. After a lengthy discussion with the family, it was decided that she would call Dr. Patiño's office and discuss discharge planning with him and it was decided that the patient would go on [facility] and she would be discharged home today. PAST MEDICAL HISTORY: 1. Coronary atherosclerosis. 2. Paroxysmal atrial fibrillation on Eliquis. 3. Hypertension. 4. Ischemic congestive cardiomyopathy, medically managed. 5. Seizure disorder on Dilantin. 6. Mixed hyperlipidemia. 7. Left carotid artery stenosis. 8. Obstructive sleep apnea, presently on no BiPAP or CPAP. PAST SURGICAL HISTORY: 1. Cholecystectomy. 2. Hysterectomy. 3. Coronary artery stent placement times 2 in June 2018. OUTPATIENT MEDICATIONS: Per the EMR and were verified. ALLERGIES: CODEINE. FAMILY HISTORY: Positive for congestive heart failure, chronic obstructive pulmonary disease and hypertension. SOCIAL HISTORY: She is . She lives in [place] with her daughter. She has two children. She has no history of tobacco, ETOH or illicit drug use. REVIEW OF SYSTEMS: Negative except as per history of present illness. PHYSICAL EXAMINATION: VITAL SIGNS: Temperature 97.7. Heart rate 92. Blood pressure 144/76. Respiratory rate 1.8 O2 saturation 96% on room air. GENERAL: This is an 89-year-old female patient lying in her hospital bed. She is in no acute distress, but she is very confused. HEENT: Normocephalic, atraumatic. Pupils are equal and reactive. Oropharynx is clear. NECK: Supple without mass. RESPIRATORY: Essentially clear to auscultation bilaterally. CHEST: There is equal rise and fall of the chest with inspiration and expiration. CARDIOVASCULAR: Regular rate and rhythm. GASTROINTESTINAL: Abdomen is soft, nondistended, nontender. Bowel sounds are positive. EXTREMITIES: No cyanosis, clubbing or edema. NEUROLOGIC: Awake and alert. She is confused. She repeats sentences over and over again. She answers a few simple yes/no questions appropriately. Other than that, she does not answer questioning appropriately. LABORATORY: Followup labs show triglycerides 141, LDL 170.9, HDL 39. Lipase 27, TSH 4.45. Urinalysis was unremarkable. Her followup Dilantin level was 22.8. Carotid artery ultrasound shows no hemodynamically significant stenosis of the bilateral carotid artery system. Her MRI of the brain shows no MRI evidence of acute intracranial abnormality with senescent changes. DISCHARGE PLAN: The patient will be discharged home in stable condition. She will have [facility] in-home hospice services. Her orders will be per [facility] protocol. She is to followup with Dr. Patiño on 12/03/19 at 9:30 AM. In addition to her routine medications, her Dilantin has been adjusted to 100 mg in the morning and 300 mg at night. She has also received some Haldol p.o. for agitation. She is to return to the hospital or followup with Dr. Patiño for any problems or complications. DISCHARGE MEDICATIONS: 1. Humalog insulin. 2. Multivitamin. 3. Aspirin. 4. Eliquis. 5. Hydroxyzine. 6. Furosemide. 7. Losartan. 8. Phenytoin. 9. Toujeo insulin. 10. Levothyroxine. 11. Potassium chloride. 12. Hydrocodone. 13. Zofran. 14. Nitroglycerin. 15. Docusate sodium. 16. Clonidine. 17. Metoprolol. 18. Haldol. #[id number] [facility]
== END 2019-11-27 19:30 | disposition home or self-care (01) ==
LOC: ER 09:55 → MS 14:03
PROVIDERS: ADMIT Nurse Practitioner Acute Care; ATTEND Nurse Practitioner Acute Care
DX: R41.0 Disorientation, unspecified (principal); R29.818 Other symptoms and signs involving the nervous system; S42.212D Unspecified displaced fracture of surgical neck of left humerus, subsequent encounter for fracture with routine healing; S72.002D Fracture of unspecified part of neck of left femur, subsequent encounter for closed fracture with routine healing; I13.0 Hypertensive heart and chronic kidney disease with heart failure and stage 1 through stage 4 chronic kidney disease, or unspecified chronic kidney disease; E11.22 Type 2 diabetes mellitus with diabetic chronic kidney disease; N18.9 Chronic kidney disease, unspecified; I25.10 Atherosclerotic heart disease of native coronary artery without angina pectoris; G40.909 Epilepsy, unspecified, not intractable, without status epilepticus; E78.2 Mixed hyperlipidemia; I65.22 Occlusion and stenosis of left carotid artery; G47.33 Obstructive sleep apnea (adult) (pediatric); I44.0 Atrioventricular block, first degree; M16.11 Unilateral primary osteoarthritis, right hip; M85.88 Other specified disorders of bone density and structure, other site; I50.9 Heart failure, unspecified; I48.0 Paroxysmal atrial fibrillation; I25.5 Ischemic cardiomyopathy; L89.893 Pressure ulcer of other site, stage 3; E07.9 Disorder of thyroid, unspecified; W18.39XD Other fall on same level, subsequent encounter; Z96.642 Presence of left artificial hip joint; Z79.01 Long term (current) use of anticoagulants; Z79.4 Long term (current) use of insulin; Z79.82 Long term (current) use of aspirin; Z79.890 Hormone replacement therapy; Z79.899 Other long term (current) drug therapy; Z88.6 Allergy status to analgesic agent; Z95.5 Presence of coronary angioplasty implant and graft; Z90.49 Acquired absence of other specified parts of digestive tract; Z90.710 Acquired absence of both cervix and uterus
CPT/HCPCS: 96372; J1630; J7040; 80053; 80061; 36415 ×2; 81001; 85025; 83690; 80185 ×2; 84443; 71045; 72170; 93880; 94760 ×5; 97530; 97162; 99285; 70551; 93005; G0378